=== PATIENT | male | born 2000 | race Caucasian/White ===

== ENCOUNTER 2019-09-08 20:39 | Inpatient (IN) ==
[2019-09-08] MEDS ORDERED: ZOFRAN IV ONE (20:52)
[2019-09-08] MEDS ORDERED: MORPHINE IV ONE (20:52)
[2019-09-08] MEDS ORDERED: NS 1,000 ML IV ONE ×2 (20:52→22:35)
--- NOTE | 2019-09-08 20:59 | PROVIDER DOCUMENTATION ---
HPI-Abdominal Pain/GI Problem - General Chief Complaint: Generalized Pain Stated Complaint: ABD PAIN Time Seen by Provider: 09/08/19 20:41 Source: patient Allergies/Adverse Reactions: Patient Allergies Allergy/AdvReac Type Severity Reaction Status Date / Time stimulants AdvReac Intermediate involuntary Uncoded 02/07/13 13:49 muscle movements Home Medications: Home Medication List Medication Instructions Recorded Confirmed Last Taken Type NK [No Home Medications] 09/08/19 09/08/19 Unknown History - History of Present Illness-ABD Nature of Presenting Problems: 18 YO M no pmh presents with c/o right sided abdominal pain x 3 days, with associated fever, n/v, diarrhea, and poor appetite. Pain is sharp and radiating to his back. He denies any tobacco, alcohol or drug use. Abdominal Pain Onset Location: reports: RUQ, RLQ Pain Radiation: reports: back Quality of Pain: reports: aching, sharp Onset/Duration: reports: 3 days ago Timing: reports: still present, constant Activities at Onset: reports: none Exposure to sick contacts?: No Modifying Factors: improves with: analgesics Associated Symptoms: reports: back/neck pain, loss of appetite, malaise, nausea, vomiting. denies: diarrhea Last BM: this evening Dark Stools Present?: reports: none noticed Rectal Bleeding: reports: none # of Diarrhea Episodes: 3 Similar Symptoms Previously?: No Recently seen or treated by another doctor?: No Review of Systems - Adult - REVIEW OF SYSTEMS - ADULT Constitutional: reports: chills, fever Eyes: reports: no symptoms reported Ears, Nose, Mouth & Throat: reports: no symptoms reported Cardiovascular: denies: chest pain, palpitations Respiratory: denies: shortness of breath, wheezing Gastrointestinal: reports: see HPI, abdominal pain Genitourinary: denies: dysuria, flank pain, hematuria Musculoskeletal: reports: see HPI Integumentary: reports: no symptoms reported Neurological: reports: no symptoms reported Past History - Adult - PAST MEDICAL HISTORY-ADULT Review of Records: reports: Social history reviewed & non-contributory. Major Childhood Illnesses: reports: denies history Cardiovascular: reports: denies history Respiratory: reports: denies history Gastrointestinal: reports: denies history Musculoskeletal: reports: denies history Endocrine/Immune: reports: denies history - PRIOR SURGERIES/PROCEDURES Surgical/Procedure History: reports: cholecystectomy, tonsillectomy - FAMILY HISTORY Family History: reviewed, not pertinent - SOCIAL HISTORY Smoking: denies, quit greater than 1 year Substance Use: denies Living Situation: family Physical Exam-General - PHYSICAL EXAM-ADULT Initial Vital Signs Reviewed: Yes - CONSTITUTIONAL General Appearance: alert, mild distress, obese - EYES Eyes: PERRL/EOMI, pink conjunctivae - HEAD, EARS, NOSE, MOUTH & THROAT HENMT: normocephalic/atraumatic, moist mucous membranes - NECK Neck: supple - RESPIRATORY Respiratory: no respiratory distress - CARDIOVASCULAR Cardiovascular: tachycardia - GASTROINTESTINAL (ABDOMEN) Abdominal Exam: other (obese). negative: De Dios's sign, obturator sign, Rovsing's sign - MUSCULOSKELETAL Back Exam: no CVA tenderness Extremity: normal gait - SKIN Integumentary: normal color, normal turgor, warm/dry - PSYCHIATRIC Psych/Mental Status: normal mood/affect, oriented x 3 Progress - PLAN OF CARE/RESULTS Progress/Plan/Lab Results: Vital Signs - 8 hr 09/08/19 20:42 Temperature 99.1 F Pulse Rate 135 H Respiratory Rate 16 Blood Pressure 116/70 O2 Sat by Pulse Oximetry 97 Orders Category Date Time Status Saline Loc NOW Care 09/08/19 20:[address] ABDOMEN/PELVIS W/O CONTRAST [CT] Stat Exams 09/08/19 20:52 Ordered CBC WITH ELECTRONIC DIFF [HEME] Stat Lab 09/08/19 20:52 Uncollected COMPREHENSIVE METABOLIC PANEL [CHEM] Stat Lab 09/08/19 20:52 Uncollected Flu Swab [INFLUENZA SCREEN A/B] Stat Lab 09/08/19 20:49 Uncollected LIPASE [CHEM] Stat Lab 09/08/19 20:[address] W/POSS RFLX CULT [URINALYSIS] Stat Lab 09/08/19 20:52 Uncollected Morphine Med 09/08/19 20:52 Once 4 mg IV NOW ONE Ns 1000 ml IV Bolus X1 Med 09/08/19 20:52 Ordered 0.9% Sodium Chloride Inj [Ns] 1,000 ml IV 999 mls/hr Ondansetron [Zofran] Med 09/08/19 20:52 Once 4 mg IV NOW ONE Result Diagrams: 09/08/19 21:28 09/08/19 21:28 - CONSULTS/PCP/HOSPITALIST Notification #1 *Consult/PCP/Hospitalist*: Dr. Evans Time Discussed: 22:30 (states to admit to hospitalist) Consult Disposition: other #2 Consult: Dr. Dickens Time Discussed: 22:49 Consult Disposition: Admit Departure - Departure Date of Disposition Decision: 09/08/19 Time of Disposition Decision: 22:44 DIAGNOSIS: Abdominal pain, Fever, Thrombocytopenia Disposition: ADMITTED INPATIENT 09 Certified Medical Emergency: Emergent Condition: Stable Referrals and Follow-Ups: None,PCP [Primary Care Provider] - - Critical Care Note This patient required my direct & personal management of CC.: No Attestation - Physician/ DIONTE Attestation The physician spent face to face time with patient:: Yes Advanced Practice Provider documentation review:: Supervising physician onsite and consulted in the evaluation and care of this patient. The physician did have a face to face encounter with the patient.
[2019-09-08 21:18] LABS: INFLUENZA A NEGATIVE (NEGATIVE); INFLUENZA B NEGATIVE (NEGATIVE)
[2019-09-08 21:54] LABS: AGAP 10; ALBUMIN 3.9 g/dL (3.5-5.0); ALKALINE PHOSPHATASE 60 U/L (32-122); BUN 8 mg/dL (8-22); CALCIUM 8.9 mg/dL (8.8-10.2); CHLORIDE 101 mmol/L (98-107); COSMO 272; CREATININE 0.9 mg/dL (0.7-1.2); ESTIMATED GFR > 60; GLUCOSE 104 mg/dL (70-104); GOT 29 U/L (10-34); GPT 75 U/L (10-44); LIPASE 18 U/L (13-60); POTASSIUM 3.9 mmol/L (3.5-5.1); SODIUM 137 mmol/L (136-145); TCO2 26 mmol/L (25-35); TOTAL PROTEIN 6.5 g/dL (6.3-8.3)
[2019-09-08] MEDS ORDERED: FLAGYL 500 MG/NS 500 MG/100 ML IVPB IV ONE (21:55)
[2019-09-08] MEDS ORDERED: ROCEPHIN 1 GM in NS 50 ML IV ONE (21:55)
[2019-09-08 21:57] LABS: BASO# 0.01 X1000 (0.0-0.2); BASO% 0.1 % (0.0-0.8); EOS# 0.08 X1000 (0.0-0.7); HEMATOCRIT 46.1 % (42.0-52.0); HEMOGLOBIN 15.1 g/dL (14.0-18.0); IMM GRAN# 0.02 X1000 (0.0-0.04); IMM GRAN% 0.2 % (0.0-0.5); LYMPH# 0.73 X1000 (1.2-3.4); LYMPH% 8.7 % (20.5-51.1); MCH 30.3 PG (27-31); MCHC 32.8 g/dL (33-37); MCV 92.4 FL (81-99); MONO# 0.73 X1000 (0.11-0.59); MONO% 8.7 % (1.7-9.3); MPV 11.3 FL (7.4-10.4); NEUT# 6.78 X1000 (1.4-6.5); NEUT% 81.3 % (42.2-75.2); PLT 93 X1000 (130-400); RBC 4.99 XMIL (4.7-6.1); RDW 12.6 % (11.5-14.5); WBC 8.35 X1000 (4.8-10.8)
[2019-09-08] MEDS ORDERED: DILAUDID IV ONE (21:57)
[2019-09-08 22:02] LABS: BILIRUBIN URINE NEGATIVE (NEGATIVE); BLOOD URINE NEGATIVE (NEGATIVE); CLARITY CLEAR (CLEAR); COLOR YELLOW; GLUCOSE URINE NEGATIVE (NEGATIVE); KETONE URINE NEGATIVE (NEGATIVE); LEUKOCYTES URINE NEGATIVE (NEGATIVE); NITRITE URINE NEGATIVE (NEGATIVE); PH URINE 6.5; PROTEIN URINE NEGATIVE (NEGATIVE); SP GRAVITY URINE 1.015; UROBILINOGEN URINE NORMAL
[2019-09-08 22:06] LABS: URINE SOURCE CLEAN CATCH
[2019-09-08 22:08] LABS: URINE BACTERIA NEGATIVE /HFP; URINE EPITHELIAL CELLS <10 /HPF (<10); URINE RBC <10 /HPF (<10); URINE WBC <10 /HPF (<10)
--- NOTE | 2019-09-08 22:17 | Diag Imaging Result Doc PS360 ---
CT ABDOMEN/PELVIS W/O CONTRAST - 09/08/2019 INDICATION: right sided abd pain COMPARISON: None FINDINGS: The lung bases are clear and the heart size is normal. There are cholecystectomy clips. No radiodense renal stones. No hydronephrosis or hydroureter. There is moderate nonspecific mesenteric edema. There are several, top normal sized mesenteric lymph nodes as well. No bowel obstruction. No free air or free fluid. Normal appendix. Urinary bladder, prostate, and rectum are normal. There are chronic bilateral L5 pars defects. Otherwise bony structures are unremarkable. IMPRESSION: Mild mesenteric edema with prominent mesenteric lymph nodes, suggestive of mesenteric panniculitis. This exam was performed using automated exposure control, adjustment of mA or kV according to patient size, and/or use of iterative reconstruction technique Electronically signed by Bertin Goode 09/08/2019 10:14 PM
[2019-09-08] MEDS ORDERED: NS 2,000 ML IV ONE (22:36)
[2019-09-08] MEDS ORDERED: TYLENOL PO ONE (22:44)
[2019-09-08] MEDS ORDERED: DILAUDID IV PRN (23:13)
[2019-09-08 23:14] LABS: UR AMPHETAMINES QUAL NONE DETECTED (NONE DETECT); UR BARBITUATES QUAL NONE DETECTED (NONE DETECT); UR BENZODIAZEPIN QUAL NONE DETECTED (NONE DETECT); UR CANNABINOIDS QUAL NONE DETECTED (NONE DETECT); UR COCAINE QUAL NONE DETECTED (NONE DETECT); UR METHADONE QUAL NONE DETECTED (NONE DETECT); UR METHAMPHETAMINE QUAL NONE DETECTED (NONE DETECT); UR OPIATES QUAL PRESUMPTIVE POSITIVE (NONE DETECT); UR OXYCODONE QUAL NONE DETECTED (NONE DETECT); UR PCP QUAL NONE DETECTED (NONE DETECT); UR PROPOXYPHENE QUAL NONE DETECTED (NONE DETECT); UR TCA QUAL NONE DETECTED (NONE DETECT)
[2019-09-08] MEDS ORDERED: MOTRIN PO PRN (23:14)
[2019-09-09] MEDS: MOTRIN PO PRN ×2 (01:49→10:22)
[2019-09-09 05:19] LABS: AGAP 11; ALBUMIN 3.6 g/dL (3.5-5.0); ALKALINE PHOSPHATASE 72 U/L (32-122); BUN 10 mg/dL (8-22); CALCIUM 8.5 mg/dL (8.8-10.2); CHLORIDE 103 mmol/L (98-107); COSMO 277; CREATININE 0.9 mg/dL (0.7-1.2); ESTIMATED GFR > 60; GLUCOSE 112 mg/dL (70-104); GOT 86 U/L (10-34); GPT 138 U/L (10-44); POTASSIUM 4.5 mmol/L (3.5-5.1); SODIUM 139 mmol/L (136-145); TCO2 26 mmol/L (25-35); TOTAL PROTEIN 5.9 g/dL (6.3-8.3)
[2019-09-09 05:43] LABS: BASO# 0.01 X1000 (0.0-0.2); BASO% 0.1 % (0.0-0.8); EOS# 0.01 X1000 (0.0-0.7); EOS% 0.1 % (0.0-10.0); HEMATOCRIT 43.2 % (42.0-52.0); HEMOGLOBIN 14.1 g/dL (14.0-18.0); IMM GRAN# 0.02 X1000 (0.0-0.04); IMM GRAN% 0.2 % (0.0-0.5); LYMPH# 0.72 X1000 (1.2-3.4); LYMPH% 8.6 % (20.5-51.1); MCH 30.7 PG (27-31); MCHC 32.6 g/dL (33-37); MCV 93.9 FL (81-99); MONO# 0.64 X1000 (0.11-0.59); MONO% 7.6 % (1.7-9.3); NEUT# 7.02 X1000 (1.4-6.5); NEUT% 83.4 % (42.2-75.2); PLT 97 X1000 (130-400); RDW 12.8 % (11.5-14.5); WBC 8.42 X1000 (4.8-10.8)
--- NOTE | 2019-09-09 10:10 | HISTORY AND PHYSICAL ---
CHIEF COMPLAINT: Right-sided abdominal pain for 3 days with associated fever, nausea, vomiting, diarrhea and decreased appetite. HISTORY OF PRESENTING ILLNESS: This is a 18-year-old male who presents to [facility] ER with complaints of right-sided abdominal pain, associated fever, nausea, vomiting, diarrhea and decreased appetite for 3 days that progressively worsened. When he arrived to the emergency room he had a temperature of 99.1 degrees, a pulse of 135. Approximately an hour later his temperature went up to 101.1 and then around midnight 30, his temperature went up to 102.7. Temp is currently at 98.5 degrees. He did not have a white blood cell count, it was 8.35. His plasma lactate on arrival was 1.7, around 2 a.m. this morning, it went up to 3 and then back down to 2.1 around 5 a.m. this morning. Urinalysis was negative. We did a CT of his abdomen and pelvis that showed mild mesenteric edema with prominent mesenteric lymph node suggestive of mesenteric panniculitis, so he was admitted for further evaluation and treatment. PAST MEDICAL HISTORY: He does have bipolar with violent tendencies. PAST SURGICAL HISTORY: Cholecystectomy and a tonsillectomy. FAMILY HISTORY: Reviewed and noncontributory. SOCIAL HISTORY: Currently lives with family. Denies any tobacco, alcohol or illicit drug use. ALLERGIES: To stimulants. HOME MEDICATIONS: He does not take any medications on a routine basis at this time. LABORATORY DATA: Showed a white blood cell count of 8.35, hemoglobin 15.1, hematocrit 46.1, platelets 93,000. Sodium 137, potassium 3.9, chloride 101, CO2 26, BUN of 8, creatinine 0.9, glucose 104, AST of 29, ALT of 75. Lipase was 18. Plasma lactate of 1.7, then it went on the second set to 3.0, 3rd set came back down to 2.1. Labs this morning did show a bump in his liver enzymes with an AST of 86, ALT of 138. Urinalysis was negative. Urine drug screen was presumptive positive for opiates. Influenza A and B were both negative. CT of the abdomen and pelvis showed mild mesenteric edema with prominent mesenteric lymph nodes suggestive of mesenteric panniculitis. REVIEW OF SYSTEMS: He was positive for a fever, chills. Denied any blurred vision, dizziness, chest pain, coughing, shortness of breath. He had right-sided abdominal pain in the right upper and lower quadrant, nausea, vomiting, diarrhea, decreased appetite. Denied any burning or hurting with urination and he was hurting in his lower back. PHYSICAL EXAMINATION: On arrival he had a temp 99.1 degrees, a pulse of 135, respirations 16, blood pressure 116/70, saturating 97% on room air. He did spike a fever around midnight 30 of 102.7. This morning, his temperature is down to 98.5, pulse is 98, respirations 18, blood pressure 122/80, and was saturating 98% on room air. GENERAL: This is a 18-year-old morbidly obese male who is lying in the bed. Answers questions appropriately. HEENT: Normocephalic, atraumatic. Normal ENT inspection. Oropharynx and nares are clear. EYES: Pupils are equal, round, reactive to accommodation. Extraocular movements are intact. NECK: Normal inspection. Normal range of motion. LUNGS: Clear to auscultation bilaterally with equal lung expansion and chest wall movement. HEART: Regular rate and rhythm. No murmurs, rubs, or gallops. ABDOMEN: Soft, nontender, nondistended. Bowel sounds are present x4 quadrants. He had positive CVA tenderness bilaterally. MUSCULOSKELETAL: He had 5/5 strength x4 extremities. NEUROLOGICAL: The cranial nerves 2-12 appear grossly intact. ASSESSMENT: 1. Right upper and lower quadrant abdominal pain. 2. Nausea and vomiting, diarrhea. 3. Fever. 4. Mesenteric panniculitis. 5. Elevated LFTs. PLAN: He was admitted to the medical unit, placed on a clear liquid diet initially, advanced to a full liquid diet. We will give him ibuprofen 600 mg p.o. q.6 hours p.r.n. He received 3 L of normal saline boluses in the emergency room. He also received a 1 time dose of Flagyl 500 mg IV x1 and Rocephin 1 g IV x1. I am going to discuss with attending the need to continue any antibiotics as I do not have a true source of infection. This may just be viral and we will do further orders after seen by attending. Dictated by GLENN Vickers for Rip Parikh MD cc: Kay GLENN Walsh MD
[2019-09-09] MEDS: NS 1,000 ML IV SCH ×2 (11:10→21:30)
[2019-09-09] MEDS ORDERED: NORCO-7.5 PO PRN (18:31)
[2019-09-10 05:56] LABS: BASO# 0.01 X1000 (0.0-0.2); BASO% 0.2 % (0.0-0.8); EOS# 0.19 X1000 (0.0-0.7); EOS% 2.9 % (0.0-10.0); HEMATOCRIT 43.5 % (42.0-52.0); HEMOGLOBIN 14.2 g/dL (14.0-18.0); IMM GRAN# 0.01 X1000 (0.0-0.04); IMM GRAN% 0.2 % (0.0-0.5); LYMPH# 0.93 X1000 (1.2-3.4); LYMPH% 14.2 % (20.5-51.1); MCH 30.1 PG (27-31); MCHC 32.6 g/dL (33-37); MCV 92.2 FL (81-99); MONO# 0.77 X1000 (0.11-0.59); MONO% 11.7 % (1.7-9.3); MPV 11.3 FL (7.4-10.4); NEUT# 4.65 X1000 (1.4-6.5); NEUT% 70.8 % (42.2-75.2); PLT 105 X1000 (130-400); RBC 4.72 XMIL (4.7-6.1); RDW 12.5 % (11.5-14.5); WBC 6.56 X1000 (4.8-10.8)
[2019-09-10 06:48] LABS: AGAP 10; ALBUMIN 3.6 g/dL (3.5-5.0); ALKALINE PHOSPHATASE 68 U/L (32-122); BUN 8 mg/dL (8-22); CALCIUM 8.8 mg/dL (8.8-10.2); CHLORIDE 106 mmol/L (98-107); COSMO 278; CREATININE 0.8 mg/dL (0.7-1.2); ESTIMATED GFR > 60; GLUCOSE 131 mg/dL (70-104); GOT 40 U/L (10-34); GPT 101 U/L (10-44); POTASSIUM 3.7 mmol/L (3.5-5.1); SODIUM 139 mmol/L (136-145); TCO2 23 mmol/L (25-35)
[2019-09-10 11:20] VITALS: BP 133/75
[2019-09-10] MEDS: NS 1,000 ML IV SCH (11:54)
[2019-09-10] MEDS ORDERED: FLU VACCINE IM ONE (12:54)
[2019-09-10] MEDS ORDERED: PNEUMOVAX 23 IM ONE (12:54)
[2019-09-10 13:21] LABS: HEPATITIS PROFILE ACUTE SEE COMMENTS
--- NOTE | 2019-09-11 09:29 | DISCHARGE SUMMARY ---
ADMISSION DATE: 09/09/2019 DISCHARGE DATE: 09/10/2019 DISCHARGE DIAGNOSIS: Possible panniculitis versus a viral kind of gastroenteritis, possible hepatitis, not otherwise specified. HOSPITAL COURSE: In any case, the patient was evaluated. He did have a fever up to 102. His CT showed some mild inflammation. Granted, it was without contrast, of his mesenteric lymph nodes, I guess nonspecific. His micro and white count and all that was negative. He was treated conservatively with IV fluids and we monitored him. Flu test was negative. Blood cultures were negative. He did have a mild elevation in AST and ALT but they were pretty normal. He is status post cholecystectomy. His liver really was unremarkable. We advanced his diet, kept him on fluids. He became afebrile. Nelsonia that this was likely a nonbacterial infection. Hepatitis and EBV are pending. Recommended to go home and follow up with his PCP. Repeat liver enzymes in about 1 to 2 weeks. Avoid Tylenol, alcohol. Continue to follow. The patient will need work excuse. cc: Rip Parikh MD
== END 2019-09-10 17:00 | disposition home or self-care (01) | DRG 395 ==
LOC: P.ED 20:39 → P.MEDSURG 09-09 00:07 → SUATTDRO 09-09 00:07
PROVIDERS: ATTEND Internal Medicine